=== PATIENT | male | born 1965 | race Caucasian/White ===

== ENCOUNTER 2020-07-30 06:24 | Day surgery (SDC) | payer OTHER ==
[~2020-07-30 06:24] MED LIST: Lactated Ringers 1,000 ML IV SCH; Lidocaine 1%/Sod Bicarbonate in NS 8.4% 1 ML Syringe IDERM PRN; Sodium Chloride 0.9% 10 ML Syringe FLUSH PRN
[2020-07-30] MEDS ORDERED: Ropivacaine 0.5% 5 MG/ML 30 ML SDV ONE (06:39)
[2020-07-30] MEDS ORDERED: Dexamethasone 4 MG/ML 5 ML MDV ONE (06:45)
[2020-07-30] MEDS ORDERED: Lidocaine 1% 8 ML ONE (06:48)
[2020-07-30] MEDS ORDERED: Midazolam 1 MG/ML 2 ML SDV ONE ×2 (06:49→08:16)
[2020-07-30] MEDS ORDERED: fentaNYL 100 MCG/2 ML SDV ONE (06:49)
[2020-07-30] MEDS ORDERED: ceFAZolin 1 GM Vial ONE (06:51)
[2020-07-30] MEDS ORDERED: Propofol 200 MG/20 ML SDV ONE (06:52)
[2020-07-30] MEDS ORDERED: Succinylcholine/Sod PF 100 MG/5 ML SYRINGE IV ONE (06:53)
[2020-07-30] MEDS ORDERED: EPINEPHrine 1 MG/ML 30 ML MDV IRR SCH (07:00)
--- NOTE | 2020-07-30 07:35 | PCM.PREANE ---
Preanesthetic Assessment - Procedure Proposed Procedure: Left shoulder video arthroscopy - Anesthesia/Transfusion/Family Hx Anesthesia History: Prior Anesthesia Without Reaction Transfusion History: No Prior Transfusion(s) Type of Transfusion Reactions: Reports: Unknown - Review of Systems General: No Symptoms Pulmonary: No Symptoms Cardiovascular: No Symptoms Gastrointestinal: No Symptoms Neurological: No Symptoms Other: Reports: None - Physical Assessment NPO Status Date: 07/29/20 NPO Status Time: 18:00 Vital Signs: Last Vital Signs Temp 97.3 F 07/30/20 06:25 Pulse 67 07/30/20 06:25 Resp 20 07/30/20 06:25 BP 128/84 07/30/20 06:25 Pulse Ox 99 07/30/20 06:25 Height: 1.83 m Weight: 105.052 kg ASA Class: 2 Mental Status: Alert & Oriented x3 Airway Class: Mallampati = 2 Dentition: Reports: Normal Dentition Thyro-Mental Finger Breadths: 3 Mouth Opening Finger Breadths: 3 ROM/Head Extension: Full Lungs: Clear to Auscultation, Normal Respiratory Effort Cardiovascular: Regular Rate, Regular Rhythm - Lab Values: Laboratory Last Values COVID-19 PCR Not detected (NOT DETECT) 07/27/20 09:30 - Allergies Allergies/Adverse Reactions: Allergies Allergy/AdvReac Type Severity Reaction Status Date / Time No Known Allergies Allergy Verified 07/30/20 06:46 - Acknowledgements Anesthesia Type Planned: General Anesthesia, Regional Block (ISB for postoperative ) PreAnesthesia Questionnaire HEENT History: Reports: Hard of Hearing, Impaired Vision, Other (See Below) Other HEENT History: Tinnitus, bilateral hearing loss Cardiovascular History: Reports: High Cholesterol Respiratory History: Reports: Bronchitis, Recurrent Gastrointestinal History: Reports: Chronic Diarrhea, Colon Polyp Genitourinary History: Reports: Prostate Disorder, Other (See Below) Other Genitourinary History: Enlarged prostate, impotence, vericocele SMELTER CHARGER History: Reports: None Musculoskeletal History: Reports: Arthritis, Back Pain, Chronic, Other (See Below) Other Musculoskeletal History: left shoulder pain, lateral epicondylitis of elbow, arthralgia to bilateral knees, left hip arthralgia Neurological History: Reports: Other (See Below) Other Neuro History: Mcnair's Palsy, lumbar radiculopathy, cerviclagia Psychiatric History: Reports: None Endocrine/Metabolic History: Reports: None Hematologic History: Reports: None Immunologic History: Reports: None Oncologic (Cancer) History: Reports: None Dermatologic History: Reports: None - Infectious Disease History Infectious Disease History: Reports: None - Past Surgical History Head Surgeries/Procedures: Reports: None HEENT Surgical History: Reports: None Cardiovascular Surgical History: Reports: None Respiratory Surgical History: Reports: Other (See Below) Other Respiratory Surgeries/Procedures: bronchoscopy GI Surgical History: Reports: Colonoscopy Female Surgical History: Reports: None Male Surgical History: Reports: None Endocrine Surgical History: Reports: None Neurological Surgical History: Reports: None Musculoskeletal Surgical History: Reports: Hip Replacement, Other (See Below) Other Musculoskeletal Surgeries/Procedures:: bilateral knee meniscus repair, left wrist tendon repair Oncologic Surgical History: Reports: None Dermatological Surgical History: Reports: None - SUBSTANCE USE Smoking Status *Q: Never Smoker Days Per Week of Alcohol Use: 5 Number of Drinks Per Day: 1 Total Drinks Per Week: 5 Recreational Drug Use History: No - HOME MEDS Home Medications: Home Meds Cholecalciferol (Vitamin D3) [Vitamin D3] 1,000 units PO DAILY 08/26/16 [History] Naproxen 250 mg PO BID PRN 08/26/16 [History] Sildenafil [Viagra] 50 mg PO ASDIRECTED PRN 08/26/16 [History] Tamsulosin HCl [Flomax] 1 cap PO DAILY 08/26/16 [History] atorvaSTATin Calcium [Lipitor] 10 mg PO DAILY 07/29/20 [History] Acetaminophen/HYDROcodone [Sebastian 325-5 MG] 1 - 2 tab PO Q6H PRN #40 tablet 0 07/30/20 [Rx] Ondansetron [Zofran] 4 mg PO Q6H PRN #20 tab 07/30/20 [Rx] - CURRENT (IN HOUSE) MEDS Current Meds: Current Medications Epinephrine HCl (Adrenalin) 3 mg IRR ONETIME SAMIRA Stop: 07/30/20 12:00 Lactated Ringer's (Ringers, Lactated) 1,000 mls @ 125 mls/hr IV ASDIRECTED SAMIRA Stop: 07/30/20 23:00 Last Admin: 07/30/20 06:30 Dose: 125 mls/hr Documented by: Lidocaine/Sodium Bicarbonate (Buffered Lidocaine 1% In Ns 8.4%) 0.25 ml IDERM ONETIME PRN PRN Reason: Prior to IV Start Stop: 07/30/20 18:00 Last Admin: 07/30/20 06:30 Dose: 0.25 ml Documented by: Sodium Chloride (Saline Flush) 10 ml FLUSH ASDIRECTED PRN PRN Reason: Keep Vein Open Stop: 07/30/20 18:00 Discontinued Medications Cefazolin Sodium (Ancef) Confirm Administered Dose 2 gm .ROUTE .STK-MED ONE Stop: 07/30/20 06:52 Dexamethasone (Dexamethasone) Confirm Administered Dose 20 mg .ROUTE .STK-MED ONE Stop: 07/30/20 06:46 Fentanyl (Sublimaze) Confirm Administered Dose 100 mcg .ROUTE .STK-MED ONE Stop: 07/30/20 06:50 Lidocaine HCl (Xylocaine-Mpf 1%) Confirm Administered Dose 8 mls @ as directed .ROUTE .STK-MED ONE Stop: 07/30/20 06:49 Midazolam HCl (Versed 1 Mg/Ml) Confirm Administered Dose 4 mg .ROUTE .STK-MED ONE Stop: 07/30/20 06:50 Propofol (Diprivan 20 Ml) Confirm Administered Dose 200 mg .ROUTE .STK-MED ONE Stop: 07/30/20 06:53 Ropivacaine (Naropin 0.5%) Confirm Administered Dose 30 ml .ROUTE .STK-MED ONE Stop: 07/30/20 06:40
[2020-07-30] MEDS ORDERED: fentaNYL 100 MCG/2 ML SDV IVPUSH PRN (07:40)
[2020-07-30] MEDS ORDERED: HYDROmorphone 0.5 MG/0.5 ML Syringe IVPUSH PRN (07:40)
--- NOTE | 2020-07-30 07:41 | PCM.PRNOTE ---
- Free Text/Narrative Note: Postoperative regional pain control requested by surgeon. Pre-op Dx: Left strain of muscle, fascia and tendon of long head of the biceps Surgical procedure: Left shoulder videoarthroscopy with biceps tenotomy, labral repair and extensive debridement Procedure: Left Interscalene block with U/S guidance Requesting physician: Dr. Torsten Culp Risks and benefits discussed with the patient preoperatively including infection, bleeding, incomplete or failed block, possible nerve damage, local anesthetic toxicity. Chart reviewed, VS stable. Permit signed. Patient in preoperative room 8, stable , alert and awake. Time out performed at 07:07. Oxygen 3L via NC. Left side of the neck was prepped with Chloraprep x 1 and allowed to dry. Midazolam IV 4 mg given incrementally. Under aseptic technique, the brachial plexus was identified under ultrasound prior to needle insertion. Local infiltration with 2mls of 1% Lidocaine. 2" Stimuplex needle #22 G was inserted under US guidance. Neuromuscular response of biceps contraction and forearm twitching elicited at 0.6 mA. Under direct visualization of needle tip the injection of 0.5% Ropivacaine with 1:200k epinephrine and 6 mg of Dexamethasone, total of 30 mls in divided doses, maintaining negative aspiration was completed without problems. No local anesthetic toxicity was noted. Patient is awake, stable and tolerated the procedure well. Please see the attached U/S images Time: 07:07 - 07:23
[2020-07-30] MEDS ORDERED: Lactated Ringers 1,000 ML ONE (08:36)
--- NOTE | 2020-07-30 09:50 | PCM.POSTAN ---
POST ANESTHESIA ASSESSMENT - MENTAL STATUS Mental Status: Somnolent - VITAL SIGNS Vital Signs: Last Vital Signs Temp 97.0 F 07/30/20 09:37 Pulse 82 07/30/20 09:37 Resp 17 07/30/20 09:37 BP 129/80 07/30/20 09:37 Pulse Ox 98 07/30/20 09:37 - RESPIRATORY Respiratory Status: Respiratory Rate WNL, Airway Patent, O2 Saturation Stable, Supplemental Oxygen - CARDIOVASCULAR CV Status: Pulse Rate WNL, Blood Pressure Stable - GASTROINTESTINAL GI Status: No Symptoms - PAIN Pain Score: 0 (post ISB) - POST OP HYDRATION Hydration Status: Adequate & Stable
--- NOTE | 2020-07-30 10:03 | PCM.OPNOTE ---
- General Post-Op/Procedure Note Date of Surgery/Procedure: 07/30/20 Operative Procedure(s): left shoulder video arthroscopy with biceps tenotomy, extensive debridement, and superior labral repair Pre Op Diagnosis: left shoulder biceps tendinitis with superior labral tear Post-Op Diagnosis: Same Anesthesia Technique: General ET Tube, Regional Block Primary Surgeon: Torsten Benton Anesthesia Provider: Francisco Jones Broomcorn Sorter: Mia Samson EBL in mLs: 5 Complications: None Condition: Good
[2020-07-30] MEDS ORDERED: Scopolamine 1.5 MG Transdermal Patch TOP ONE (10:21)
--- NOTE | 2020-07-30 11:24 | PCM48HPAN ---
Post Anesthesia Note - EVALUATION WITHIN 48HRS OF ANESTHETIC Vital Signs in Normal Range: Yes Patient Participated in Evaluation: Yes Respiratory Function Stable: Yes Airway Patent: Yes Cardiovascular Function Stable: Yes Hydration Status Stable: Yes Pain Control Satisfactory: Yes Nausea and Vomiting Control Satisfactory: Yes Mental Status Recovered: Yes Vital Signs: Last Vital Signs Temp 97.0 F 07/30/20 10:20 Pulse 72 07/30/20 10:20 Resp 18 07/30/20 10:20 BP 128/81 07/30/20 10:20 Pulse Ox 96 07/30/20 10:20 - COMMENTS/OBSERVATIONS Free Text/Narrative:: No anesthesia complications noted. Patient mentioned slight numbness in the left side of the face and left side of the lip, but it was subsiding. Explanations given about residual effect of the interscalene block.
[2020-07-30 11:55] VITALS: BP 135/54; PULSE 75
--- NOTE | 2020-08-07 12:39 | OR ---
DATE OF OPERATION: 07/30/2020 SURGEON: Torsten Benton MD OPERATION PERFORMED: Left shoulder video arthroscopy, biceps tenotomy, extensive debridement, and superior labral repair. PREOPERATIVE DIAGNOSIS: Left shoulder biceps tendinitis with superior labral tear. POSTOPERATIVE DIAGNOSIS: Left shoulder biceps tendinitis with superior labral tear. ANESTHESIA: General endotracheal intubation with regional interscalene block. ANESTHESIA PROVIDER: Francisco Jonse. SENIOR PROCUREMENT MANAGER: Mia Samson PA-C. ESTIMATED BLOOD LOSS: Less than 5 mL. COMPLICATIONS: None. CONDITION: Stable. DESCRIPTION OF PROCEDURE: The patient was identified in the preoperative holding area. Proper site was marked, identified by the surgeon. The patient was taken back to the operating theater where after adequate anesthesia, the patient was placed in the lazy right lateral decubitus position. Wedge was placed posteriorly. The patient was secured to the table. At this time, the left upper extremity was sterilely prepped and draped in the usual sterile fashion. OR time-out was performed. The patient received 2 g IV Ancef. 12 pounds of traction was applied. Standard posterior incision was made. Scope trocar was introduced to the glenohumeral joint. At this time, the patient was noted to have significant biceps fraying as well as tendinopathy. There was noted to be a superior labral tear that was stable, type 2. Subscapularis tendon was intact. With the use of a spinal needle, anterior portal was then created. The undersurface of the rotator cuff was intact with no signs of erythema or tear. There was no chondromalacia noted either. At this time, a biceps tenotomy was then performed with part of the labrum and then the superior labrum was noted to be loose, so we did place 2 Arthrex PushLock anchors superiorly to secure the labrum superiorly after the edge of the glenoid was roughened. At this time, an extensive debridement was done of the synovitis as well. Attention was turned to the subacromial space. An extensive debridement was done of the subacromial space. The patient had no signs of impingement of the CA ligament with no erythema. The rotator cuff was otherwise intact. Excess saline was drained from the shoulder. 3-0 nylon suture was used for closure of the skin. The patient tolerated the procedure well and sent to PACU in stable condition. ARMANI /[id number]
== END 2020-07-30 11:35 | disposition home or self-care (01) ==
LOC: JD.SDS 06:24
PROVIDERS: ATTEND Orthopaedic Surgery
DX: S43.432A Superior glenoid labrum lesion of left shoulder, initial encounter (principal); M75.22 Bicipital tendinitis, left shoulder; Z01.812 Encounter for preprocedural laboratory examination; Z20.828 Contact with and (suspected) exposure to other viral communicable diseases; E78.2 Mixed hyperlipidemia; E78.00 Pure hypercholesterolemia, unspecified; Z96.642 Presence of left artificial hip joint; Z79.899 Other long term (current) drug therapy; X58.XXXA Exposure to other specified factors, initial encounter
CPT/HCPCS: 29807; 29823; 87635; A9270; C1713; J0171; J0330; J0690; J1100; J2001; J2250; J2704; J2795; J3010; J7120; 01630; 64415; U0002

== ENCOUNTER 2023-06-05 09:20 | Day surgery (SDC) | payer OTHER ==
[~2023-06-05 09:20] MED LIST changes: +Bupivacaine 0.25% 10 ML SDV ONE; +EPINEPHrine 1 MG/ML 30 ML MDV IRR SCH; -Lidocaine 1%/Sod Bicarbonate in NS 8.4% 1 ML Syringe IDERM PRN; +Sodium Chloride 0.9% 10 ML Syringe FLUSH SCH
[2023-06-05] MEDS ORDERED: Midazolam 1 MG/ML 2 ML SDV ONE (10:06)
[2023-06-05] MEDS ORDERED: fentaNYL 100 MCG/2 ML SDV ONE (10:06)
[2023-06-05] MEDS ORDERED: Propofol 200 MG/20 ML SDV ONE (10:07)
[2023-06-05] MEDS ORDERED: ceFAZolin 2 GM Vial ONE (10:07)
[2023-06-05] MEDS ORDERED: Lidocaine 1% 2 ML ONE (10:07)
[2023-06-05] MEDS ORDERED: Ketorolac 30 MG/ML SDV ONE (11:14)
[2023-06-05] MEDS ORDERED: Ondansetron 4 MG/2 ML SDV ONE (11:14)
[2023-06-05] MEDS ORDERED: Dexamethasone 4 MG/ML 5 ML MDV ONE (11:14)
[2023-06-05] MEDS ORDERED: HYDROmorphone 0.5 MG/0.5 ML Syringe IVPUSH PRN (11:28)
[2023-06-05] MEDS ORDERED: Ondansetron 4 MG/2 ML SDV IVPUSH PRN (11:28)
[2023-06-05] MEDS ORDERED: fentaNYL 100 MCG/2 ML SDV IVPUSH PRN (11:28)
[2023-06-05 14:06] VITALS: BP 115/69; PULSE 68
== END 2023-06-05 13:19 | disposition home or self-care (01) ==
LOC: JD.SDS 09:20
PROVIDERS: ATTEND Orthopaedic Surgery
DX: M23.321 Other meniscus derangements, posterior horn of medial meniscus, right knee (principal); M17.11 Unilateral primary osteoarthritis, right knee; M22.41 Chondromalacia patellae, right knee; M23.611 Other spontaneous disruption of anterior cruciate ligament of right knee; N40.0 Benign prostatic hyperplasia without lower urinary tract symptoms; K21.9 Gastro-esophageal reflux disease without esophagitis; E78.2 Mixed hyperlipidemia; Z79.899 Other long term (current) drug therapy; Z96.642 Presence of left artificial hip joint
CPT/HCPCS: 29881; J0171; J0690; J1100; J1885; J2250; J2405; J2704; J3010; J3490; J7120; 01400

== ENCOUNTER 2023-12-25 07:28 | Day surgery (SDC) | payer OTHER ==
[~2023-12-25 07:28] MED LIST changes: -Bupivacaine 0.25% 10 ML SDV ONE; -EPINEPHrine 1 MG/ML 30 ML MDV IRR SCH; -Lactated Ringers 1,000 ML IV SCH
[2023-12-25] MEDS: Lactated Ringers 1,000 ML IV SCH (07:45)
[2023-12-25] MEDS ORDERED: Ropivacaine 0.5% 5 MG/ML 30 ML SDV ONE (08:11)
[2023-12-25] MEDS ORDERED: dexmedeTOMIDine HCl 200 MCG/2 ML SDV ONE (08:11)
[2023-12-25] MEDS ORDERED: Dexamethasone 4 MG/ML 5 ML MDV ONE (08:13)
[2023-12-25] MEDS ORDERED: fentaNYL 100 MCG/2 ML SDV ONE (08:13)
[2023-12-25] MEDS ORDERED: Midazolam 1 MG/ML 2 ML SDV ONE (08:13)
[2023-12-25] MEDS: Pregabalin 25 MG Cap PO SCH (08:15)
[2023-12-25] MEDS: oxyCODONE ER 10 MG TAB.ER PO SCH (08:15)
[2023-12-25] MEDS: Acetaminophen 325 MG Tab PO SCH (08:16)
[2023-12-25] MEDS ORDERED: Propofol 200 MG/20 ML SDV ONE ×2 (08:24→09:47)
[2023-12-25] MEDS ORDERED: ceFAZolin 2 GM Vial ONE (09:00)
[2023-12-25] MEDS ORDERED: fentaNYL 100 MCG/2 ML SDV IVPUSH PRN (09:58)
[2023-12-25] MEDS ORDERED: HYDROmorphone 0.5 MG/0.5 ML Syringe IVPUSH PRN (09:58)
[2023-12-25] MEDS ORDERED: Lactated Ringers 1,000 ML ONE (10:03)
[2023-12-25] MEDS: Morphine 8 MG, EPINEPHrine 0.3 MG, Cefuroxime 750 MG, Ketorolac 30 MG, Sodium Chloride ... PRN (10:10)
[2023-12-25] MEDS: Vancomycin 1 GM SDV ONE (10:10)
[2023-12-25] MEDS: Tranexamic Acid 1,000 MG/10 ML Vial ONE (10:10)
[2023-12-25] MEDS ORDERED: EPINEPHrine 1 MG/ML SDV ONE (10:26)
[2023-12-25] MEDS ORDERED: oxyCODONE 5 MG Tab PO PRN (11:29)
[2023-12-25 12:43] VITALS: PULSE 64
[2023-12-25 13:20] VITALS: BP 134/74
== END 2023-12-25 13:40 | disposition home or self-care (01) ==
LOC: JD.SDS 07:28
PROVIDERS: ATTEND Orthopaedic Surgery
DX: M17.11 Unilateral primary osteoarthritis, right knee (principal); I10 Essential (primary) hypertension; E78.2 Mixed hyperlipidemia; K21.9 Gastro-esophageal reflux disease without esophagitis; N40.0 Benign prostatic hyperplasia without lower urinary tract symptoms; Z79.899 Other long term (current) drug therapy
CPT/HCPCS: 01402; 64447; 73560-26-RT; 73560-RT; 97116-GP; 97161-GP; A9270-GY; C1713; C1776; J0171; J0690; J0697; J1100; J1885; J2250; J2270; J2704; J2795; J3010; J3370; J3490; J7030; J7120

== ENCOUNTER 2024-12-02 09:31 | Day surgery (SDC) | payer OTHER ==
[~2024-12-02 09:31] MED LIST changes: +Dexamethasone 4 MG/ML 5 ML MDV ONE; +Ketorolac 30 MG/ML SDV ONE; +Lidocaine 1% 4 ML ONE; +Midazolam 1 MG/ML 2 ML SDV ONE; +Ondansetron 4 MG/2 ML SDV ONE; +Propofol 200 MG/20 ML SDV ONE; +Rocuronium 50 MG/5 ML Vial ONE; +Ropivacaine 0.5% 5 MG/ML 30 ML SDV ONE; +ceFAZolin 2 GM Vial ONE; +dexmedeTOMIDine HCl 200 MCG/2 ML SDV ONE; +fentaNYL 100 MCG/2 ML SDV ONE
[2024-12-02] MEDS: Lactated Ringers 1,000 ML IV SCH (10:00)
[2024-12-02] MEDS ORDERED: EPINEPHrine 1 MG/ML SDV ONE (10:09)
[2024-12-02] MEDS ORDERED: Bupivacaine 0.25% 10 ML SDV ONE (10:10)
[2024-12-02] MEDS ORDERED: HYDROmorphone 0.5 MG/0.5 ML Syringe IVPUSH PRN (11:35)
[2024-12-02] MEDS ORDERED: Ondansetron 4 MG/2 ML SDV IVPUSH PRN (11:35)
[2024-12-02] MEDS ORDERED: Sugammadex Sodium 200 MG/2 ML VIAL IV ONE (11:53)
[2024-12-02] MEDS: fentaNYL 100 MCG/2 ML SDV IVPUSH PRN (13:03)
[2024-12-02 14:43] VITALS: BP 114/75; PULSE 84
== END 2024-12-02 14:20 | disposition home or self-care (01) ==
LOC: JD.SDS 09:31
PROVIDERS: ATTEND Orthopaedic Surgery
DX: M75.32 Calcific tendinitis of left shoulder (principal); M75.42 Impingement syndrome of left shoulder; M94.212 Chondromalacia, left shoulder; K21.9 Gastro-esophageal reflux disease without esophagitis; I10 Essential (primary) hypertension; E78.00 Pure hypercholesterolemia, unspecified; Z79.899 Other long term (current) drug therapy
CPT/HCPCS: 29823; 64415; J0171; J0690; J1100; J1885; J2250; J2405; J2704; J2795; J3010; J7120; J0665; J3490